=== PATIENT | male | born 1980 ===

== ENCOUNTER 2018-04-04 11:21 | Emergency (ER) | payer OTHER, MEDICAID ==
[2018-04-04 11:55] VITALS: BP 136/80; PULSE 70; RESP 16; TEMP 98.7; O2SAT 98
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
== END 2018-04-04 13:22 | disposition home or self-care (01) ==
LOC: MERGE 11:21 → C.ER 11:21
DX: S39.012A Strain of muscle, fascia and tendon of lower back, initial encounter (principal); S16.1XXA Strain of muscle, fascia and tendon at neck level, initial encounter; V49.40XA Driver injured in collision with unspecified motor vehicles in traffic accident, initial encounter
CPT/HCPCS: 96372; 99283; J1885